=== PATIENT | female | born 1975 | race Asian ===

== ENCOUNTER 2019-08-19 23:38 | Emergency (ER) | payer BC ==
[~2019-08-19] VITALS: Ht 167.6 cm; Wt 59.0 kg
[2019-08-19 23:40] VITALS: Ht 167.6 cm; Wt 59.0 kg
[2019-08-20 00:38] LABS: AMPHETAMINE QUAL UR NONE DETECTED (See below)
[2019-08-20 00:56] LABS: BASOPHIL % 0.5 % (0-2); PLATELET COUNT 350 x10^3mcL (130-400)
[2019-08-20 01:15] LABS: CALCIUM 8.9 mg/dL (8.5-10.1); CHLORIDE SERUM 103 mmol/L (98-107); CREATININE SERUM 0.9 mg/dL (0.6-1.0); GFR1 > 60 mL/min; GLUCOSE SERUM 99 mg/dL (74-106); POTASSIUM SERUM 3.7 mmol/L (3.5-5.1); SODIUM SERUM 139 mmol/L (136-145)
[2019-08-20 01:21] LABS: ALBUMIN 3.9 g/dL (3.4-5.0); ALKALINE PHOSPHATASE 62 U/L (46-116); ALT/SGPT 32 U/L (14-59); AST/SGOT 16 U/L (15-37); BILIRUBIN TOTAL 0.21 mg/dL (0.20-1.00); LIPASE 341 IU/L (73-393); TRIGLYCERIDES 101 mg/dL (<150)
[2019-08-20 01:22] LABS: CHOLESTEROL 202 mg/dL (<200); CHOLESTEROL/HDL RATIO 2.9; HDL CHOLESTEROL 69 mg/dL (40-60); TOTAL PROTEIN, SERUM 8.3 g/dL (6.4-8.2)
[2019-08-20 02:37] VITALS: BP 143/86
== END 2019-08-20 02:37 | disposition home or self-care (01) ==
LOC: ED 23:38
PROVIDERS: Emergency Medicine
DX: R07.89 Other chest pain (principal); R06.00 Dyspnea, unspecified
CPT/HCPCS: 36415; 85378